=== PATIENT | female | born 1955 | race Caucasian/White ===

== ENCOUNTER → 2020-04-12 | Outpatient (CLI) | payer OTHER | LOC: HEART 5 13:40 | DX: J44.9 Chronic obstructive pulmonary disease, unspecified (principal); R06.00 Dyspnea, unspecified; R05 Cough; R06.2 Wheezing | CPT/HCPCS: 94010; 94729 ==

== ENCOUNTER → 2021-02-03 | Outpatient (CLI) | payer OTHER ==
[~2021-02-03] VITALS: Ht 154.9 cm; Wt 142.4 kg
== END ==
LOC: OPSV 15:00
DX: D64.9 Anemia, unspecified (principal)
CPT/HCPCS: 96365; J1756

== ENCOUNTER → 2021-02-08 | Outpatient (CLI) | payer OTHER ==
[~2021-02-08] VITALS: Ht 154.9 cm; Wt 142.4 kg
== END ==
LOC: OPSV 14:00
DX: D64.9 Anemia, unspecified (principal)
CPT/HCPCS: 96365; J1756

== ENCOUNTER → 2021-02-15 | Outpatient (CLI) | payer OTHER ==
[~2021-02-15] VITALS: Ht 154.9 cm; Wt 142.4 kg
[~2021-02-15] MED LIST: AMBIEN10 MG PO; COLACE 100MG C100 MG PO; FLU VACCINE IM; HYDROCODON-ACE1 EAC1 PO; LASIX 40 MG TAB40 MG PO; LEVOTHYROXINE150 MC1 PO; MOBIC7.5 MG PO; NORVASC5 MG PO
== END ==
LOC: OPSV 14:00
DX: D64.9 Anemia, unspecified (principal)
CPT/HCPCS: 96365; J1756

== ENCOUNTER 2021-02-28 23:40 | Inpatient (IN) | payer OTHER ==
[~2021-02-28] VITALS: Ht 154.9 cm; Wt 137.9 kg
[2021-03-01 02:17] LABS: HEMOGLOBIN 10.2 gm/dl (12.3-15.3); RED BLOOD COUNT 4.78 M/UL (4.00-5.10); WHITE BLOOD COUNT 11.2 K/UL (4.5-11.0)
[2021-03-01] MEDS ORDERED: NORVASC5 MG PO (10:15)
[2021-03-01] MEDS ORDERED: AMBIEN10 MG PO (10:16)
[2021-03-01] MEDS ORDERED: HYDROCODON-ACE1 EAC1 PO (10:16)
[2021-03-01] MEDS ORDERED: LEVOTHYROXINE150 MC1 PO (10:16)
[2021-03-01] MEDS ORDERED: MOBIC7.5 MG PO (10:17)
[2021-03-01] MEDS ORDERED: LASIX 40 MG TAB40 MG PO (10:17)
[2021-03-02 02:16] LABS: RED BLOOD COUNT 4.15 M/UL (4.00-5.10)
[2021-03-02] MEDS ORDERED: COLACE 100MG C100 MG PO (11:28)
[2021-03-02] MEDS ORDERED: FLU VACCINE IM (11:28)
--- NOTE | 2021-03-02 13:35 | NUR ---
03/02/21 3230 unable to change appointment time for tomorrow at this time, power out in office, computer system down, will call her back tomorrow or saturday
== END 2021-03-02 15:08 | disposition home or self-care (01) | DRG 389 ==
LOC: ER1 23:40 → 3 EAST 03-01 04:57 → CDU 03-01 04:57 → 3 EAST 03-01 07:44
PROVIDERS: Family Medicine; ADMIT Family Medicine
DX: K56.609 Unspecified intestinal obstruction, unspecified as to partial versus complete obstruction (principal); Z68.43 Body mass index [BMI] 50.0-59.9, adult; I10 Essential (primary) hypertension; E03.9 Hypothyroidism, unspecified; F32.9 Major depressive disorder, single episode, unspecified; J45.909 Unspecified asthma, uncomplicated; G47.00 Insomnia, unspecified; M19.90 Unspecified osteoarthritis, unspecified site; Z20.822 Contact with and (suspected) exposure to COVID-19; M51.36 Other intervertebral disc degeneration, lumbar region; G47.33 Obstructive sleep apnea (adult) (pediatric); F32.A Depression, unspecified; F17.200 Nicotine dependence, unspecified, uncomplicated; J44.9 Chronic obstructive pulmonary disease, unspecified; E66.01 Morbid (severe) obesity due to excess calories; G89.29 Other chronic pain; Z90.710 Acquired absence of both cervix and uterus; Z99.81 Dependence on supplemental oxygen; Z88.2 Allergy status to sulfonamides; Z79.899 Other long term (current) drug therapy; Z86.16 Personal history of COVID-19; Z82.5 Family history of asthma and other chronic lower respiratory diseases; Z82.49 Family history of ischemic heart disease and other diseases of the circulatory system; Z80.9 Family history of malignant neoplasm, unspecified; Z23 Encounter for immunization
CPT/HCPCS: 71045; 80048; 80053; 83690; 85025; 85027; 90686; 94660; 96374; 96375; 96376; 99285; G0008; J2270; J2405; Q9967; U0002

== ENCOUNTER → 2021-03-31 | Outpatient (CLI) | payer OTHER ==
[~2021-03-31] VITALS: Ht 154.9 cm; Wt 142.4 kg
== END ==
LOC: OPSV 14:42
DX: D64.9 Anemia, unspecified (principal)
CPT/HCPCS: 96365; J1756